=== PATIENT | female | born 1965 | race Caucasian/White ===

== ENCOUNTER 2019-02-22 09:42 | Day surgery (SDC) | payer BC ==
[~2019-02-22 09:42] MED LIST: ALEVE220 M1 PO; ASPIRIN LOW DOS81 M1 PO; ASPIRIN81 MG PO; CLONAZEPAM1 M1 OR; CRESTOR10 MG OR; LANTUS SC; LANTUS100 MG/ML SC; LEVEMIR100 UNIT/M SC; LISINOPRIL20 MG OR; LORTAB 5 OR; METFORMIN1000 MG PO; METFORMIN500 M1 OR; OZEMPIC2 MG/1.5 M; PRILOSEC20 MG OR; PROVENTIL HFA IN
[2019-02-22 12:31] VITALS: BP 142/83
== END 2019-02-22 12:45 | disposition home or self-care (01) | DRG 392 ==
LOC: ENDO 09:42 → ORM 12:30 → ENDO 12:45
PROVIDERS: ATTEND Surgery
PROC: 0DB48ZX Excision of Esophagogastric Junction, Via Natural or Artificial Opening Endoscopic, Diagnostic (ICD-10-PCS; principal; 2019-02-22)
PROC: 0DJD8ZZ Inspection of Lower Intestinal Tract, Via Natural or Artificial Opening Endoscopic (ICD-10-PCS; 2019-02-22)
DX: K21.0 Gastro-esophageal reflux disease with esophagitis (principal); K31.9 Disease of stomach and duodenum, unspecified; Z12.11 Encounter for screening for malignant neoplasm of colon; K64.8 Other hemorrhoids; E11.9 Type 2 diabetes mellitus without complications; I10 Essential (primary) hypertension; K43.2 Incisional hernia without obstruction or gangrene; Z79.899 Other long term (current) drug therapy; Z80.0 Family history of malignant neoplasm of digestive organs

== ENCOUNTER 2019-03-13 07:48 | Day surgery (SDC) | payer BC ==
[~2019-03-13] VITALS: Ht 165.1 cm; Wt 97.1 kg
[2019-03-13] MEDS ORDERED: PERCOCET 5/325M1 TAB PO (11:13)
[2019-03-13 13:38] VITALS: BP 111/68
== END 2019-03-13 13:10 | disposition home or self-care (01) | DRG 355 ==
LOC: ORM 07:48
PROVIDERS: ATTEND Surgery
PROC: 0WUF4JZ Supplement Abdominal Wall with Synthetic Substitute, Percutaneous Endoscopic Approach (ICD-10-PCS; principal; 2019-03-13)
DX: K43.2 Incisional hernia without obstruction or gangrene (principal); K31.9 Disease of stomach and duodenum, unspecified
CPT/HCPCS: J0131; J2710